=== PATIENT | male | born 1935 | race African-American/Black ===

== ENCOUNTER 2018-06-22 11:24 | Observation (INO) ==
[~2018-06-22 11:24] MED LIST: ASPIRIN 325 MG TABLET PO ONE; DIAZEPAM 5 MG TABLET PO ONE; MAGNESIUM SULF RIDER 2 GM in PREMIX 1 EACH IV PRN; POTASSIUM CHLORIDE RIDER 10 MEQ in PREMIX 1 EACH IV PRN; diphenhydrAMINE CAP 25 MG CAPSULE PO ONE
[2018-06-22] MEDS ORDERED: LIDOCAINE 1% 20 ML VIAL ONE ×2 (12:52→13:25)
[2018-06-22] MEDS ORDERED: HEPARIN/NACL 0.9% 2 UNITS/ML 0 ML IV ONE (12:52)
[2018-06-22] MEDS ORDERED: ASPIRIN 325 MG TABLET ONE (13:03)
[2018-06-22] MEDS ORDERED: diphenhydrAMINE CAP 25 MG CAPSULE ONE (13:03)
[2018-06-22] MEDS ORDERED: DIAZEPAM 5 MG TABLET ONE (13:03)
[2018-06-22] MEDS: SODIUM CHLORIDE 0.9% 1,000 ML IV SCH ×2 (13:07→23:14)
[2018-06-22] MEDS ORDERED: HEPARIN/NACL 0.9% 2 UNITS/ML 1,000 ML IV ONE (13:25)
[2018-06-22] MEDS ORDERED: HYDROmorphone 2 MG/1 ML VIAL ONE (14:18)
[2018-06-22] MEDS ORDERED: MIDAZOLAM 2 MG/2 ML VIAL ONE (14:19)
[2018-06-22] MEDS ORDERED: HEPARIN/NACL 0.9% 2 UNITS/ML 500 ML IV ONE (14:24)
[2018-06-22] MEDS ORDERED: BIVALIRUDIN 250 MG VIAL IV ONE (15:08)
[2018-06-22] MEDS ORDERED: CLOPIDOGREL 300 MG TABLET ONE (15:51)
[2018-06-22] MEDS ORDERED: NITROGLYCERIN SL 0.4 MG TABLET SL PRN ×2 (15:59→16:02)
[2018-06-22] MEDS ORDERED: ZALEPLON 5 MG CAPSULE PO PRN (15:59)
[2018-06-22] MEDS ORDERED: ONDANSETRON 4 MG/2 ML VIAL IV PRN (15:59)
[2018-06-22] MEDS ORDERED: ALLOPURINOL 100 MG TABLET PO PRN (16:02)
[2018-06-22] MEDS ORDERED: LISINOPRIL 20 MG TABLET PO SCH (21:00)
[2018-06-22] MEDS ORDERED: ATENOLOL 50 MG TABLET PO SCH (21:00)
[2018-06-22] MEDS: ACETAMINOPHEN 500 MG TABLET PO SCH (21:41)
[2018-06-22] MEDS: FERROUS GLUCONATE 324 MG TABLET PO SCH (21:42)
[2018-06-23 05:56] LABS: Blood Urea Nitrogen 15 MG/DL (7-18); Calcium 8.3 MG/DL (8.5-10.1); Glucose 83 MG/DL (74-106); Osmolality,Calculated 280.3 MOS/KG (273-304); Sodium 141 MMOL/L (136-145)
[2018-06-23 05:58] LABS: Troponin I 0.149 NG/ML (0.00-0.045)
[2018-06-23 08:10] VITALS: BP 144/80
[2018-06-23] MEDS: ACETAMINOPHEN 500 MG TABLET PO SCH (08:34)
[2018-06-23] MEDS: FERROUS GLUCONATE 324 MG TABLET PO SCH (08:35)
[2018-06-23] MEDS ORDERED: ATORVASTATIN 10 MG TABLET PO SCH (09:00)
[2018-06-23] MEDS ORDERED: FUROSEMIDE 40 MG TABLET PO SCH (09:00)
[2018-06-23] MEDS ORDERED: ASPIRIN EC 81 MG TABLET PO SCH (09:00)
[2018-06-23] MEDS ORDERED: CLOPIDOGREL 75 MG TABLET PO SCH (09:00)
[2018-06-23] MEDS ORDERED: DIGOXIN 0.125 MG TABLET PO SCH (13:00)
== END 2018-06-23 13:10 | disposition home or self-care (01) ==
LOC: N.CL 11:24 → N.TELES 11:24 → N.CL 11:37 → N.TELES 16:19
PROVIDERS: ADMIT Internal Medicine Cardiovascular Disease; ATTEND Internal Medicine Cardiovascular Disease
PROC: CLCCHCL (ICD-10-PCS; 2018-06-22 13:15)